=== PATIENT | male | born 1995 | race Caucasian/White ===

== ENCOUNTER 2024-08-04 06:12 | Day surgery (SDC) | payer OTHER ==
[2024-08-04] VITALS (232 sets, daily range): BP systolic 67–142; BP diastolic 32–98
[~2024-08-04] VITALS: Ht 180.3 cm; Wt 84.1 kg
--- NOTE | 2024-08-04 07:00 | NUR ---
Patient arrived to the ANR suite, identification and demographics confirmed. Patient to room 9, AAO, ambulatory, vitals obtained, ID/allergy/fall bands placed, changed into hospital gown, YUSRA hose, and non-slip socks. Procedure and timeline explained for treatment and discharge. All questions answered and the patient presents no concerns at this time.
[2024-08-04] MEDS ORDERED: CYANOCOBALAMIN 500 MCG/TAB ( B12) PO PRN (07:30)
[2024-08-04] MEDS ORDERED: cloNIDine HCL 0.1 MG/TAB PO PRN (07:30)
[2024-08-04] MEDS ORDERED: SCOPOLAMINE 1.5 MG DIS TD PRN (07:30)
[2024-08-04] MEDS ORDERED: ALBUTEROL SULFATE 2.5 MG VIAL IN PRN (07:30)
[2024-08-04] MEDS ORDERED: LACTATED RINGER'S 1,000 ML IV PRN ×3 (07:30→19:00)
[2024-08-04] MEDS ORDERED: diazePAM 5 MG/TAB PO PRN ×2 (07:30→08:30)
[2024-08-04] MEDS ORDERED: FAMOTIDINE 20 MG/TAB PO PRN (07:30)
[2024-08-04] MEDS ORDERED: PANTOPRAZOLE SODIUM Sesquihydr 40 MG/TAB PO PRN (07:30)
--- NOTE | 2024-08-04 07:38 | NUR ---
Dr. Da Silva telephoned with patient intake information including usage, dose, last dose/time taken and initial vital signs. Patient history and allergies reviewed with MD. Orders received for 10 mg PO Valium and 0.1 mg PO Clonidine now. Will reassess per protocol in 1.5 hours and update MD with assessment and vitals.
[2024-08-04] MEDS ORDERED: ASCORBIC ACID 4,000 MG in SODIUM CHLORIDE 0.9% 1,000 ML IV SCH (08:00)
[2024-08-04 08:12] LABS: BASO% 1.1 % (0-3); EOS% 0.3 % (0-8); HEMATOCRIT 39.6 % (39.0-50.0); HEMOGLOBIN 13.3 g/dl (14.0-18.0); IMMATURE GRANULOCYTES 0.3 % (0.0-5.0); LYMPH% 35.6 % (15-41); MEAN CORPUSCULAR HGB 30.6 pG CALC (26.0-32.0); MEAN CORPUSCULAR HGB CONC 33.6 g/dL CAL (32.0-36.0); MONO% 9.5 % (2-13); NEUT# 3.42 thou/uL (1.82-7.42); NEUT% 53.2 % (42-76); RED BLOOD COUNT 4.35 mill/uL (4.70-6.10); RED CELL DISTRI WIDTH 12.2 % (11.5-15.5)
[2024-08-04 08:34] LABS: ALBUMIN 3.8 g/dL (3.2-5.0); BILIRUBIN, TOTAL 0.5 mg/dL (0.2-1.3); CREATININE 0.8 mg/dL (0.7-1.3); POTASSIUM 3.8 mmol/l (3.5-5.1); TOTAL PROTEIN 6.4 g/dL (6.3-8.2)
[2024-08-04] MEDS ORDERED: cloNIDine HCL 0.1 MG/TAB VT PRN (08:55)
[2024-08-04] MEDS ORDERED: ONDANSETRON HCl 4 MG/2 ML SDV IV PRN ×3 (08:55→19:00)
[2024-08-04] MEDS ORDERED: PROPOFOL 10 MG/ML 100ML VIAL IV PRN (08:55)
[2024-08-04] MEDS ORDERED: DEXAMETHASONE SODIUM PHOSPHATE PF 10 MG/ML SDV IV PRN ×2 (08:55→19:00)
[2024-08-04] MEDS ORDERED: THIAMINE HCL 100 MG/ML 2ML VIAL IV PRN (08:55)
[2024-08-04] MEDS ORDERED: STERILE WATER FOR IRRIGATION 1,000 ML BTL IR PRN (08:55)
[2024-08-04] MEDS ORDERED: SUCCINYLCHOLINE CHLORIDE 20 MG/ML 10ML VIAL IV PRN (08:55)
[2024-08-04] MEDS ORDERED: POTASSIUM CHLORIDE 10 MEQ/50 ML BAG IV PRN (08:55)
[2024-08-04] MEDS ORDERED: OCTREOTIDE ACETATE 100 MCG/VIAL SDV SC PRN (08:55)
[2024-08-04] MEDS ORDERED: ROCURONIUM BROMIDE 10 MG/ML 5ML VIAL IV PRN (08:55)
[2024-08-04] MEDS ORDERED: LIDOCAINE HCL 1% (10MG/ML) 100 MG/10 ML MDV VT PRN ×2 (08:55)
[2024-08-04] MEDS ORDERED: DiphenhydrAMINE HCL 50 MG/ML SDV IV PRN (08:55)
[2024-08-04] MEDS ORDERED: NALTREXONE HCL 50 MG/TAB VT PRN (08:55)
[2024-08-04] MEDS ORDERED: LIDOCAINE HCL 1% (10MG/ML) 100 MG/10 ML MDV IV PRN (08:55)
[2024-08-04] MEDS ORDERED: diazePAM 5 MG/TAB VT PRN (08:55)
[2024-08-04] MEDS ORDERED: MAGNESIUM SULFATE HEPTAHYDRATE 100 ML IV PRN (08:55)
[2024-08-04] MEDS ORDERED: MIDAZOLAM HCL 2 MG/2 ML VIAL IV PRN (08:55)
[2024-08-04] MEDS ORDERED: cloNIDine HYDROCHLORIDE 100 MCG/ML 10 ML INJ IV PRN (08:55)
[2024-08-04] MEDS ORDERED: PROPOFOL 100 ML IV PRN (08:55)
--- NOTE | 2024-08-04 09:05 | NUR ---
Patient resting comfortably in bed. Easily aroused, maintains focus, and drifts back to sleep. No signs of active withdrawal or distress noted at this time. Continuous SPO2, rhythm, and respiratory monitoring initiated. IVF @ 250 mL/HR, room air, VSS.
--- NOTE | 2024-08-04 10:45 | NUR ---
DR. FUENTES AT BEDSIDE TO ASSESS PT AND DISCUSS POC AND PROCEDURE.
--- NOTE | 2024-08-04 11:34 | NUR ---
Induction Note Patient to ANR procedure room. Time out performed at 1055. Patient placed on monitors, Emerson hugger, bilateral wrist restraints applied for ET tube protection. Versed 5mg given IV push at 1056 Tourniquet applied to right arm Lidocaine 100mg given at 1129 IV push followed by Rocoronium 10mg at 1130 IV push and held for 90 seconds. Propofol bolus of 120mg given at 1132 IV push. Succinylcholine 80mg given IV push at 1133. Smooth intubation with 7.5 ETT. Positive CO2. Positive Auscultation for air exchange. ET secured with tube vazquez 21 @ the lip by Dr. Da Silva. Patient placed on ventilator for spontaneous ventilation. Placed on Propofol IV drip at 1134. OG inserted. Positive air on auscultation. Positive gastric content. Stomach washed at this time.
--- NOTE | 2024-08-04 11:45 | NUR ---
OG close note Stomach washed at this time. Naltrexone 50 mg with Clonidine 0.1 mg via OG tube. OG will be clamped for 45 minutes.
--- NOTE | 2024-08-04 12:30 | NUR ---
OG open note OG open at this time. Gastric content draining into drainage bag. OG to drain for 45 minutes. Propofol will be titrated down based on patient.
--- NOTE | 2024-08-04 13:15 | NUR ---
OG close note Stomach washed at this time. Naltrexone 50 mg with Clonidine 0.2 mg via OG tube. OG will be clamped for 45 minutes.
[2024-08-04] MEDS ORDERED: clonazePAM 1 MG/TAB PO PRN (14:25)
--- NOTE | 2024-08-04 14:45 | NUR ---
OG close note Stomach washed at this time. Naltrexone 50 mg via OG tube. OG will be clamped for 45 minutes.
--- NOTE | 2024-08-04 16:10 | NUR ---
No OG close at this time. Patient minimally reacting to treatment. Vitals, total Naltrexone & Clonidine, current Propofol infusion rate, treatment duration, and patient assessment discussed with Dr. Da Silva. No orders for medication administration at this time. OG will remain open to allow time for patient to continue reacting to therapy.
[2024-08-04] MEDS ORDERED: NALTREXONE50 MG PO (16:42)
[2024-08-04] MEDS ORDERED: KLONOPIN2 MG PO (16:42)
[2024-08-04] MEDS ORDERED: CLONIDINE0.1 MG PO (16:42)
--- NOTE | 2024-08-04 17:15 | NUR ---
OG close note Stomach washed at this time. Naltrexone 12.5 mg with Valium 10 mg via OG tube. OG will be clamped for 20-30 minutes for closing dose.
--- NOTE | 2024-08-04 17:32 | NUR ---
ALL BELONGINGS SECURED IN LOCKER CONDE #1 IN ANR DEPARTMENT.
--- NOTE | 2024-08-04 17:40 | NUR ---
Extubation note Closing medications given Benadryl 50mg IV push, Decadron 10mg IV push,Magnesium 4 grams IV, Zofran 8mg IV push, Octreotide 100mcg SC. Stomach washed out prior to extubation. Suctioned gastric content. OG removed. Patient extubated. Propofol Discontinued. Wrist restraints removed. Emerson hugger Removed. See ANR Moderate sedate recovery record for further notes and assessment.
[2024-08-04] MEDS ORDERED: ePHEDrine SULFATE 50 MG/ML AMP IV SCH (18:30)
[2024-08-04] MEDS ORDERED: ePHEDrine SULFATE 50 MG/ML AMP IM SCH (18:31)
--- NOTE | 2024-08-04 18:50 | NUR ---
PHONE CALL PLACED TO PT MOTHER DECEMBER. UPDATE PROVIDED AT THIS TIME. ALL QUESTIONS AND CONCERNS ADDRESSED.
--- NOTE | 2024-08-04 18:50 | NUR ---
Patient to room 288 in no acute distress. Transfer of care to [facility], bedside report provided. 2L NC placed per orders, IVF to continue at 100ml/hr. VSS. Patient resting comfortably, no adventitious breath sounds appreciated. Bed alarm set. See chart/EMAR for procedural details and assessments. Handoff of care at the time of this note.
[2024-08-04] MEDS ORDERED: ACETAMINOPHEN 1,000 MG/100 ML VIAL IV PRN (19:00)
[2024-08-04] MEDS ORDERED: KETOROLAC TROMETHAMINE 30 MG/ML SDV IV PRN (19:00)
[2024-08-04] MEDS ORDERED: PROMETHAZINE HCL 12.5 MG in SODIUM CHLORIDE 0.9% 50 ML IV PRN (19:00)
[2024-08-04] MEDS ORDERED: ACETAMINOPHEN 500 MG TAB PO PRN (19:00)
[2024-08-04] MEDS ORDERED: PROMETHAZINE HCL 25 MG in SODIUM CHLORIDE 0.9% 50 ML IV PRN (19:00)
[2024-08-04] MEDS ORDERED: HALOPERIDOL LACTATE 5 MG/ML SDV IV PRN (19:00)
[2024-08-04] MEDS ORDERED: LORazepam 2 MG/ML IV PRN ×2 (19:00)
--- NOTE | 2024-08-04 19:08 | NUR ---
RECEIVED REPORT FROM ANR NURSE. PT NOTED LAYING IN BED SEMI FOWLERS, EYE COVER ON AND 2L O2 NC IN PLACE. PT IS RESTING COMFORTABLY AT THIS TIME. AROUSABLE TO SPEECH BUT DISORIENTED AND DROWSY. VSS. NO S/S OF DISTRESS. BED ALARM ON AND SAFETY PRECAUTIONS IN PLACE.
--- NOTE | 2024-08-04 20:31 | NUR ---
PT HAD EPISODE OF VOMITTING, MEDICATION PER EMAR IS ADMINSITERING AT THIS TIME THROUGH EMAR. REPOSITONED PT TO FOLWERS ON RT SIDE FOR COMFORT AND BEAR HUGGER APPLIED FOR COMPLAINTS OF COLD. BED ALARM ON AND SFAETY PRECAUTIONS IN PLACE.
[2024-08-04] MEDS ORDERED: PATIENT' OWN MED CONTROLLED 1 EA DOSE IV PRN (21:00)
[2024-08-04] MEDS ORDERED: cloNIDine HCL 0.1 MG/TAB PO SCH (23:00)
[2024-08-05 03:37] VITALS: BP 111/62
[2024-08-05] MEDS ORDERED: clonazePAM 1 MG/TAB PO PRN ×2 (04:00→08:00)
[2024-08-05] MEDS ORDERED: NALTREXONE HCL 50 MG/TAB PO SCH ×2 (04:00→06:45)
[2024-08-05] MEDS ORDERED: cloNIDine HCL 0.1 MG/TAB PO PRN (04:00)
[2024-08-05 05:02] LABS: BASO% 0.1 % (0-3); HEMATOCRIT 39.1 % (39.0-50.0); HEMOGLOBIN 13.4 g/dl (14.0-18.0); IMMATURE GRANULOCYTES 1.1 % (0.0-5.0); LYMPH% 4.6 % (15-41); MEAN CELL VOLUME 87.5 fL CALC (80.0-100.0); MEAN CORPUSCULAR HGB CONC 34.3 g/dL CAL (32.0-36.0); MONO% 5.3 % (2-13); NEUT# 11.89 thou/uL (1.82-7.42); NEUT% 88.9 % (42-76); RED BLOOD COUNT 4.47 mill/uL (4.70-6.10); RED CELL DISTRI WIDTH 12.1 % (11.5-15.5)
[2024-08-05 05:16] LABS: ALBUMIN 3.7 g/dL (3.2-5.0); BILIRUBIN, TOTAL 0.6 mg/dL (0.2-1.3); CREATININE 0.7 mg/dL (0.7-1.3); MAGNESIUM 1.8 mg/dL (1.6-2.3); POTASSIUM 3.8 mmol/l (3.5-5.1); TOTAL PROTEIN 6.2 g/dL (6.3-8.2)
--- NOTE | 2024-08-05 06:32 | NUR ---
PT HAD ANOTHER EPISODE OF VOMITTING. INFORMED PHYSICIAN OF PT STATUS AND WITHDRAWAL SYMPTOMS PT IS PRESENTING WITH AT THIS TIME. TORB AN FAXED TO PHARMACY AWAITING VERIFICAITON. POSITIONED PT FOLWERS IN BED, ADMINSITERED MEDICATION PER EMAR. VSS. BED ALARM ON AND SAFETY PRECAUTIONS IN PLACE.
[2024-08-05] MEDS ORDERED: DEXAMETHASONE SOD. PHOSPHATE 10 MG/ML VIAL IV SCH (06:45)
[2024-08-05] MEDS ORDERED: diazePAM 10 MG/2 ML VIAL IV SCH (06:45)
[2024-08-05] MEDS ORDERED: SUCRALFATE 1 GM/TAB PO SCH (06:45)
[2024-08-05] MEDS ORDERED: Pantoprazole Sodium 40 MG VIAL (Protonix) IV SCH (06:45)
[2024-08-05] MEDS ORDERED: ACETAMINOPHEN 325 MG/TAB PO SCH (08:00)
[2024-08-05] MEDS ORDERED: cloNIDine HCL 0.1 MG/TAB PO SCH (08:00)
[2024-08-05] MEDS ORDERED: PANTOPRAZOLE SODIUM Sesquihydr 40 MG/TAB PO SCH (08:00)
[2024-08-05 08:29] VITALS: BP 105/66
--- NOTE | 2024-08-05 08:40 | NUR ---
PATIENT A.O X2; ROOM AIR; BREATHING UNLABORED; MEDICATION WAS TOLERATED; IV SITE CLEAN AND INTACT RUNNING WITH LR@100; PERSONL ITEMS IN ANR LOCKER; DENIED ANY PAIN;DENIED ANY N/D/V AT THIS TIME; ENCOURAGED PATIENT TO TRY TO EAT SOME BREAKFAST; PATINET AMBULATED WITH ASSSIT TO THE BATHROOM; LINEN WAS CHANGED; NO COMPLAINTS; CALL LIGHT WITHIN REACH, BED IN LOWEST POSTION;SAFETY MEASURES IN PLACE
[2024-08-05] MEDS ORDERED: Cholecalciferol 2,000 UNIT/TAB PO PRN (09:00)
[2024-08-05] MEDS ORDERED: ACETAMINOPHEN 500 MG TAB PO PRN (09:00)
[2024-08-05] MEDS ORDERED: MAGNESIUM OXIDE 400 MG/TAB PO PRN (09:00)
--- NOTE | 2024-08-05 09:49 | NUR ---
CALLED PROVIDER FOR REPLACEMENT OF MAG AND POTASSIUM, VERBAL ORDER, AWAITING PHARMACY; NO ISSUES
[2024-08-05] MEDS ORDERED: POTASSIUM CHLORIDE 20 MEQ/TAB PO SCH (10:00)
[2024-08-05] MEDS ORDERED: MAGNESIUM SULFATE HEPTAHYDRATE 50 ML IV SCH (10:00)
--- NOTE | 2024-08-05 11:02 | NUR ---
patient ambulated to bathroom, patient still a little drowsy; iv site clean and intact running with LR @ 100; no complaints;
--- NOTE | 2024-08-05 12:10 | NUR ---
PATIENT ON THIRD DIRRHEA; CALLED PROVIDER FOR ORDERS; AMBULATED TO BATHROOM; DENIED ANY PAIN; DENIED ANY N/V AT THIS TIME; PATIENT SITTING IN BED EATING SOME LUNCH; IV SITE CLEAN AND IN TACT RUNNING WITH LR @100; CALL LIGHT WTHIN REACH; BED IN LOWEST POSTION;SAFETY MEASURES IN PLACE
--- NOTE | 2024-08-05 13:00 | NUR ---
PATIENT IN SHOWER AT THIS TIME
[2024-08-05] MEDS ORDERED: BISMUTH SUBSALICYLATE 262 MG CHW PO SCH (13:30)
--- NOTE | 2024-08-05 15:49 | NUR ---
IV site discontinued, cath intact. No edema , no redness, voices no discomfort. Discharge instructions given. Patient verbalizes understanding of same. Discharged in stable condition via Ambulatory to Home with family. All belongings sent with pt.
== END 2024-08-05 15:50 | disposition home or self-care (01) | DRG 897 ==
LOC: MS2 06:12 → ANR 06:12
PROVIDERS: ATTEND Anesthesiology
DX: F11.20 Opioid dependence, uncomplicated (principal)
CPT/HCPCS: J0131; J1100; J2354; J2470; J3475; J3490